=== PATIENT | female | born 1940 | race Caucasian/White ===

== ENCOUNTER 2016-11-09 21:10 | Inpatient (IN) | payer OTHER ==
--- NOTE | ~2016-11-09 | HP ---
History And Physical [address] [address] NAME: KAROL CORTES : 41 STATUS : ADM [facility]ar PAT#: [id number] AGE: 75 ADM/REG DATE : 11/09/16 MR#: [id number] REPORT SERV DATE: 11/10/16 DICTATED BY: YASIR SWEENEY DATE: 11/10/16 REPORT STATUS : Draft TRANSCRIBED BY: DEBORAH DATE: 11/10/16 DATE OF ADMISSION: 11/09/2016 CHIEF COMPLAINT: A 75-year-old female presenting with severe constipation, uncomfortable urine. HISTORY OF PRESENT ILLNESS: The patient's history was obtained through careful interview with the patient and coupled with review of [facility] medical records. The patient states that she has not had a bowel movement in about one month. She denies any abdominal pain related to this though. She has also noticed difficulty with urination over the last week or so with uncomfortable urine but she denies any burning with urination. She denies urinary frequency. She describes chronic back pain, but it is not necessarily located in the flanks. It is a midline lower back pain about a 6/10 severity of aching quality. She has had nausea and a poor appetite but no vomiting. She believes she has lost some weight recently but is unclear how much. She has been getting weak over the last 7-14 days and now states that she cannot even get up and walk on her own. She admits her diabetes is poorly controlled. Blood sugars most often over 200. Over the last month, she developed ulcers on her heels, followed by home health care. No lightheadedness. No chest pain. No shortness of breath. REVIEW OF SYSTEMS: Otherwise, a 14-point review of systems was obtained and was negative. PAST MEDICAL HISTORY: 1. Diabetes. 2. Neuropathy. 3. Gastroesophageal reflux disorder. 4. Vertigo. 5. No cardiac disease. 6. No lung disease. PAST SURGICAL HISTORY: Left shoulder surgery. ALLERGIES: CODEINE. SOCIAL HISTORY: The patient is a smoker. No alcohol abuse. She is . Lives in History And Physical [address] [address] NAME: KAROL CORTES : 41 STATUS : ADM Bandar PAT#: [id number] AGE: 75 ADM/REG DATE : 11/09/16 MR#: [id number] REPORT SERV DATE: 11/10/16 DICTATED BY: YASIR SWEENEY DATE: 11/10/16 REPORT STATUS : Draft TRANSCRIBED BY: DEBORAH DATE: 11/10/16 Rivka Hernadez, has three children. Her children live in [place], [place], and [place]. She is seen by home health care. FAMILY HISTORY: Hypertension and heart disease. CURRENT MEDICATIONS: Insulin, unknown type. PHYSICAL EXAMINATION: VITAL SIGNS: Temperature 97.7, pulse 127, blood pressure 110/69, respiratory rate 18, and O2 saturation 96% on room air. GENERAL: An ill-appearing female in evidence of distress secondary to abdominal discomfort. HEENT: Pupils equal, round, and reactive to light. No conjunctival pallor. No scleral icterus. Nares are patent. Oropharynx is clear of obstruction. Very dry mucous membranes, cracking of the lips. NECK: Trachea midline. No thyromegaly. LYMPH: No cervical lymphadenopathy. No supraclavicular lymphadenopathy. No inguinal lymphadenopathy. RESPIRATORY: Clear to auscultation at bases. No wheezes, rales, or rhonchi. Normal respiratory effort. CARDIOVASCULAR: Tachycardic. Regular rhythm. No murmurs, rubs, or gallops. No extremity edema is appreciated. ABDOMEN: Despite the patient stating that she has no abdominal pain on history of present illness, her abdomen is extremely tender to palpation particularly in the suprapubic area and lower quadrants with guarding, no rebound. Nondistended abdomen with no hepatosplenomegaly. DERMATOLOGICAL: Warm and dry extremities. No pallor. No cyanosis. PSYCHIATRIC: A flat affect and irritable mood. Alert and oriented x3 though. LABORATORY DATA: White blood cell count 11, hemoglobin 15, hematocrit 43, and platelets 339. Sodium 131, potassium 5.4, chloride 94, bicarb 23, BUN 37, creatinine 0.61, glucose 260, INR 1.0, lipase 66, troponin negative. Urinalysis shows greater than 182 white blood cells, large leukocyte esterase, greater than 92 red blood cells. STUDIES: 1. CT scan of the abdomen shows cystitis, possible dilatation of the ureters, and a very large stool ball with constipation. 2. EKG by my own evaluation shows sinus tachycardia, left axis deviation, large inferior Q- waves, and septal infarct changes but generally stable compared to 10/2015. ASSESSMENT AND PLAN: 1. Severe constipation. Try enemas. May need GI consult for evacuation (?). 2. Cystitis. Place on IV antibiotics. Check urine culture. 3. Dehydration. Place on IV fluids. 4. Diabetes, uncontrolled. Check hemoglobin A1c. Add Levemir sliding scale insulin. Obtain a environmental educator consult. 5. Heel ulcers. Obtain a Wound Care consult. History And Physical [address] [address] NAME: KAROL CORTES : 41 STATUS : ADM Bandar PAT#: [id number] AGE: 75 ADM/REG DATE : 11/09/16 MR#: [id number] REPORT SERV DATE: 11/10/16 DICTATED BY: YASIR SWEENEY DATE: 11/10/16 REPORT STATUS : Draft TRANSCRIBED BY: DEBORAH DATE: 11/10/16 KPL/DEBORAH Yasir Sweeney M.D. / [id number] CC: Moni Hernandez
--- NOTE | ~2016-11-09 | DS ---
Discharge Summary [facility] [address] [place]. [address] NAME: KAROL CORTES : 41 STATUS : DIS IN PAT#: [id number] AGE: 75 ADM/REG DATE : 11/09/16 MR#: [id number] REPORT SERV DATE: 11/16/16 DICTATED BY: SIMONA CHO DATE: 11/15/16 REPORT STATUS : Draft TRANSCRIBED BY: MODL DATE: 11/15/16 ADMISSION DATE: 11/09/2016 DISCHARGE DATE: 11/15/2016 Please see prior discharge summary done by Dr. Mary's team with Klaus Rainey. 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 HOSPITAL COURSE: As an addendum to prior discharge summary, the patient and family did not want any further aggressive measures. The patient repeatedly did not want any medications or blood draws. After brad conversation, the patient has poor meaningful recovery. Her BMI is 13. Did not happen obviously overnight. It is more than likely a result of her dementia with an unintentional self neglect due to her dementia. She has completed her antibiotics for UTI for which her mental status is not improved indicating likely baseline severe dementia. The patient, as a result, with family had decided to go home with hospice. DISCHARGE MEDICATIONS: Will be per hospice. FOLLOW UP: Per hospice. I have explained this thoroughly to the family and they are appreciative. All questions were answered. It took over 30 minutes to do. MALATHI/DEBORAH Simona Cho DO / [id number] CC: DO Pita Aguiar
--- NOTE | ~2016-11-09 | IDS ---
Interim Discharge Summary [facility] [address] [place]. [address] NAME: KAROL CORTES : 41 STATUS : [facility]M [facility]#: [id number] AGE: 75 ADM/REG DATE : 11/09/16 MR#: [id number] REPORT SERV DATE: 11/13/16 DICTATED BY: KLAUS FRANCISCO DATE: 11/13/16 REPORT STATUS : Draft TRANSCRIBED BY: MODNoemi DATE: 11/13/16 ADMISSION DATE: 11/09/2016 DISCHARGE DATE: REASON FOR ADMISSION: This is a 75-year-old female, who had presented with severe constipation and dysuria. The patient had stated that she had not had a bowel movement in about one month, but denied abdominal pain, and admitted to difficulty with urination over the last week. INTERIM DISCHARGE DIAGNOSES: 1. Failure to thrive with anorexia. 2. Severe malnutrition related to anorexia. 3. Urinary tract infection. 4. Diabetes type 2, uncontrolled. 5. Status post constipation. HOSPITAL COURSE: 1. Constipation. The patient was given enemas and laxatives and had successful bowel movements. 2. UTI. The patient's urinalysis showed turbid urine with large amount of leukocyte esterase, greater than 182 white blood cells, with many white blood cell clumps, and many bacteria. She was started on IV Rocephin and urine culture would grow out 75,000 of diphtheroid like organisms. She was given Rocephin x3 doses and then the antibiotic was discontinued after culture results. 3. Diabetes type 2. The patient has uncontrolled diabetes which is unique and impressive considering her lack of eating and lack of body mass. We attempted to place her on IV fluids with dextrose 5% in them, since she was not eating, however her blood sugars have not tolerated that. Initially, she was on Levemir 12 units with sliding scale insulin. We have since pulled her off the dextrose in the IV fluids, pulled her off insulin and placed her on Januvia. Her blood sugars today have been better with overnight before she went to bed it was 246 and this morning it was 183, but the previous day, she had blood sugars that were 300 and 400. Another issue, we have been having is that she is very cantankerous and is not allowing us to check her blood sugar at times and this goes hand in hand with her behavior of refusing to eat seemingly. 4. Failure to thrive with anorexia. The patient weighs 88 pounds and has a BMI of 13. states that he cooks for her and that she is supposedly eats at home, but it seems highly unlikely that she is eating very much at home given her frailness and could cachetic appearance. We have consulted Nutrition here at the hospital to do calorie counts. I did witness the patient eating with the feeding her today, and we have also consulted Dr. Barahona of Psychiatry to see her. It is unclear whether she has some dementia that is playing a role in this or a psychiatric disorder that is playing a role in this or if she not being fed enough at home, it is a little unclear at this point. We will have further evaluation and recommendation. However, the patient does have weakness related to her frail state and after Physical Therapy saw her, they recommended fpc facility rehab. Case Management is assisting on this. Interim Discharge Summary [address] [address] NAME: KAROL CORTES : 41 STATUS : ADM IN PAT#: [id number] AGE: 75 ADM/REG DATE : 11/09/16 MR#: [id number] REPORT SERV DATE: 11/13/16 DICTATED BY: KLAUS FRANCISCO DATE: 11/13/16 REPORT STATUS : Draft TRANSCRIBED BY: DEBORAH DATE: 11/13/16 CURRENT MEDICATIONS: 1. Alogliptin 25 mg p.o. daily. 2. Heparin 5000 units subcu b.i.d. 3. Sliding scale insulin level 1. 4. Lubiprostone 8 mcg p.o. daily. 5. Mirtazapine 7.5 mg p.o. q.h.s. 6. Megace 400 mg p.o. daily. 7. MiraLAX one packet p.o. daily. 8. Thiamine 100 mg p.o. daily. CURRENT PLAN: Psychiatric consult and Nutrition Services to help assist in evaluation of core issues and plan for the patient's malnutrition and anorexic state and Case Management assisting in fpc rehab placement. The patient's care to be assumed by Dr. Emgidio Carpenter. ALESSANDRA/DEBORAH Klaus Francisco APN / [id number] CC: Moni Hernandez KATRINA V. Wesley S. Thompson, DO Denis Kennedy, M.D.
--- NOTE | ~2016-11-09 | CN ---
Consultation Report [facility] [address] [place]. [address] NAME: KAROL CORTES : 41 STATUS : ADM IN PAT#: [id number] AGE: 75 ADM/REG DATE : 11/09/16 MR#: [id number] REPORT SERV DATE: 11/14/16 DICTATED BY: ANKUSH MCNAMARA DATE: 11/14/16 REPORT STATUS : Draft TRANSCRIBED BY: MODL DATE: 11/14/16 PSYCHIATRIC CONSULTATION DATE OF CONSULTATION: 11/14/2016 I reviewed this patient's medical record. I discussed the patient's history with her , who is at the bedside. HISTORY OF PRESENT ILLNESS: She was admitted with severe constipation, urinary symptoms, poorly controlled diabetes mellitus, and anorexia. She was severely malnourished. Her thought she might have lost about 60 pounds in weight over the past two to three years. PAST PSYCHIATRIC HISTORY: She had no preexisting psychiatric illness. Over the years, she was not subject to mood issues or depression. About two to three years ago, she lost the ability to walk freely because of advancing peripheral neuropathy. This disability seemed to trigger anorexia and a lessening of her desire to go on living. She seemed to withdrawal more and become more forgetful. FAMILY HISTORY: No psychiatric illness. SOCIAL HISTORY: She grew up in [place], [place]. She has three children with her first . She has been to her second for eight years. 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 About six years ago, they moved to the local area. MENTAL STATUS: She was minimally cooperative with this examination. At one point, she angrily protested that I was asking too many questions and I was boring her. Her mood appeared to be more anhedonic than depressed. Her affect was constricted, but appropriate. Her thinking was impoverished, but logical. She had no delusions. She had no hallucinations. She was oriented to "Normal"-"October"-"toward the end"-"2016"-"Trump." She denied wanting to kill herself by starvation. She refused to discuss the consequences of not eating sufficient nourishment. When I tried to discuss the issue of a feeding tube, she repeatedly and angrily said "no, no, no." DIAGNOSES: Depressive disorder, not otherwise specified, associated with advancing peripheral neuropathy, and disability. RECOMMENDATIONS: I agree with Remeron. I would recommend changing it to the soluble tablet form and increasing the dose to 30 mg. In my opinion, she has the capacity to refuse a feeding tube. Her and according to him her children do not want the feeding tube in view of her strong opposition to it. I will sign off. DK/MODL Consultation Report [facility] [id number] [place]. [address] NAME: KAROL CORTES : 41 STATUS : ADM IN PAT#: [id number] AGE: 75 ADM/REG DATE : 11/09/16 MR#: [id number] REPORT SERV DATE: 11/14/16 DICTATED BY: ANKUSH MCNAMARA DATE: 11/14/16 REPORT STATUS : Draft TRANSCRIBED BY: DEBORAH DATE: 11/14/16 Ankush Mcnamara M.D. / [id number] CC: DO VANCE Aguiar KATRINA V.
[2016-11-09 20:09] LABS: BASOPHILS 0.1 %; BASOPHILS ABSOLUTE 0.01 10/3/uL (0.0-0.16); EOSINOPHILS 0.1 %; EOSINOPHILS ABSOLUTE 0.01 10/3/uL (0.0-0.53); ER CBC TAT 0 Hrs 12 Mins; HEMATOCRIT 43.4 % (36.0-48.0); HEMOGLOBIN 15.1 g/dL (12.0-16.0); IMMATURE GRANULOCYTES 0.4 %; IMMATURE GRANULOCYTES ABSOLUTE 0.04 10/3/uL (0.0-0.11); LYMPHOCYTES 12.7 %; LYMPHOCYTES ABSOLUTE 1.43 10/3/uL (0.67-4.30); MANUAL DIFF NO %; MEAN CORPUS HGB CONC 34.8 g/dL (32.0-36.0); MEAN CORPUSCULAR HEMOGLOB 29.4 pg (26.0-34.0); MEAN CORPUSCULAR VOLUME 84.4 fL (80-100); MEAN PLATELET VOLUME 10.3 fL (9.2-13.0); MONOCYTES 11.1 %; MONOCYTES ABSOLUTE 1.25 10/3/uL (0.21-1.20); NEUTROPHILS 75.6 %; NEUTROPHILS ABSOLUTE 8.49 10/3/uL (2.02-8.40); PLATELET COUNT 339 10/3/uL (150-400); RBC DISTRIBUTION WIDTH 13.2 % (12.0-16.0); RED CELL COUNT 5.14 10/6/uL (4.0-5.6); WHITE BLOOD CELLS 11.2 10/3/uL (4.5-10.5)
[2016-11-09 20:13] LABS: ASCORBIC ACID (UR NOT ORDER) NEG (NEG); BILIRUBIN, URINE NEGATIVE (NEG); ER URINALYSIS TAT 0 Hrs 16 Mins; KETONE, URINE TRACE MG/DL (NEG); LEUKOCYTE ESTERASE(NOT OR LARGE (NEG); NITRITE (URINE) NEG (NEG)
[2016-11-09 20:14] LABS: WBC (NOT ORDERED) (RFLEX) > 182 (0-5)
[2016-11-09 20:16] LABS: PARTIAL THROMBO TIME 27.2 SEC (22.5-37.2); PROTIME (NOT ORD) 13.1 SEC (12.0-14.5)
[~2016-11-09 21:10] MED LIST: ALEVE220 MG PO; ELDERTONIC PO; ONGLYZA2.5 MG PO; REM15 PO; ULTRAM50 PO
[2016-11-09 22:04] LABS: BUN (BLOOD UREA NITROGEN) 37 MG/DL (6-23); CALCIUM, SERUM 9.5 MG/DL (8.5-10.4); CHEST PAIN PROFILE TAT 0 Hrs 29 Mins; CHLORIDE, SERUM 94 MMOL/L (96-112); CO2 (CARBON DIOXIDE) 28 MMOL/L (24-34); CREATININE 0.61 MG/DL (0.55-1.02); GFR AFRICAN AMERICAN 104 ML/MIN (>=60); GFR NON AFRICAN AMERICAN 89 ML/MIN (>=60); GLUCOSE, SERUM 260 MG/DL (60-99); POTASSIUM, SERUM 5.4 MMOL/L (3.5-5.3); SODIUM, SERUM 131 MMOL/L (135-148); TROPONIN I 0.02 NG/ML (<0.05)
[2016-11-09] MEDS ORDERED: LANTUS SC (22:17)
[2016-11-10] MEDS ORDERED: NOVOLOG SC (09:15)
[2016-11-11 01:25] LABS: BASOPHILS 0.3 %; BASOPHILS ABSOLUTE 0.03 10/3/uL (0.0-0.16); EOSINOPHILS 0.3 %; EOSINOPHILS ABSOLUTE 0.03 10/3/uL (0.0-0.53); HEMATOCRIT 40.8 % (36.0-48.0); HEMOGLOBIN 14.2 g/dL (12.0-16.0); IMMATURE GRANULOCYTES 0.4 %; IMMATURE GRANULOCYTES ABSOLUTE 0.04 10/3/uL (0.0-0.11); LYMPHOCYTES 10.7 %; LYMPHOCYTES ABSOLUTE 1.14 10/3/uL (0.67-4.30); MANUAL DIFF NO %; MEAN CORPUS HGB CONC 34.8 g/dL (32.0-36.0); MEAN CORPUSCULAR VOLUME 83.4 fL (80-100); MEAN PLATELET VOLUME 9.5 fL (9.2-13.0); MONOCYTES 11.5 %; MONOCYTES ABSOLUTE 1.22 10/3/uL (0.21-1.20); NEUTROPHILS 76.8 %; NEUTROPHILS ABSOLUTE 8.17 10/3/uL (2.02-8.40); PLATELET COUNT 307 10/3/uL (150-400); RED CELL COUNT 4.89 10/6/uL (4.0-5.6); WHITE BLOOD CELLS 10.6 10/3/uL (4.5-10.5)
[2016-11-11 01:33] LABS: INTERNATIONAL NORMAL RATI 0.9 UNITS (-); PARTIAL THROMBO TIME 25.2 SEC (22.5-37.2); PROTIME (NOT ORD) 12.1 SEC (12.0-14.5)
[2016-11-11 01:46] LABS: A/G RATIO 0.6 (0.7-1.9); ALBUMIN 2.3 G/DL (3.5-5.0); ALKALINE PHOSPHATASE 95 U/L (45-117); BUN (BLOOD UREA NITROGEN) 21 MG/DL (6-23); CALCIUM, SERUM 9.1 MG/DL (8.5-10.4); CHLORIDE, SERUM 97 MMOL/L (96-112); CO2 (CARBON DIOXIDE) 30 MMOL/L (24-34); CREATININE 0.34 MG/DL (0.55-1.02); GFR AFRICAN AMERICAN 125 ML/MIN (>=60); GFR NON AFRICAN AMERICAN 108 ML/MIN (>=60); GLUCOSE, SERUM 66 MG/DL (60-99); PHOSPHORUS, SERUM 1.8 MG/DL (2.5-4.5); POTASSIUM, SERUM 4.1 MMOL/L (3.5-5.3); SGPT(ALT) 9 U/L (5-65); SODIUM, SERUM 132 MMOL/L (135-148); TOTAL BILIRUBIN 0.3 MG/DL (0-1.2); TOTAL PROTEIN 6.3 G/DL (6.0-8.5)
[2016-11-11 01:47] LABS: SGOT(AST) 12 U/L (5-40)
[2016-11-15] MEDS ORDERED: AMITIZA8 MCG PO (11:56)
[2016-11-15] MEDS ORDERED: REMERON30 MG PO (11:56)
[2016-11-15] MEDS ORDERED: MEGACEUDL PO (11:57)
[2016-11-15] MEDS ORDERED: MIRALAX POWDER1 PKT PO (11:58)
== END 2016-11-15 15:55 | disposition hospice, home (50) | DRG 388 ==
LOC: ER 21:10 → 1SO 23:33
PROVIDERS: Hospitalist; Nurse Practitioner
DX: K56.41 Fecal impaction (principal); E43 Unspecified severe protein-calorie malnutrition; N39.0 Urinary tract infection, site not specified; Z68.1 Body mass index [BMI] 19.9 or less, adult; G62.9 Polyneuropathy, unspecified; E11.65 Type 2 diabetes mellitus with hyperglycemia; G31.09 Other frontotemporal neurocognitive disorder; F02.80 Dementia in other diseases classified elsewhere, unspecified severity, without behavioral disturbance, psychotic disturbance, mood disturbance, and anxiety; Z51.5 Encounter for palliative care; Z66 Do not resuscitate; L89.629 Pressure ulcer of left heel, unspecified stage; L89.619 Pressure ulcer of right heel, unspecified stage; E86.0 Dehydration; G89.29 Other chronic pain; M54.9 Dorsalgia, unspecified; K21.9 Gastro-esophageal reflux disease without esophagitis; F32.9 Major depressive disorder, single episode, unspecified; F17.210 Nicotine dependence, cigarettes, uncomplicated; R62.7 Adult failure to thrive; Z79.4 Long term (current) use of insulin; Z79.899 Other long term (current) drug therapy; Z88.5 Allergy status to narcotic agent
CPT/HCPCS: 70450; 74176; 80048; 80053; 81001; 82962; 83036; 83690; 83735; 84100; 84484; 85025; 85610; 85730; 87086; 93005; 96361; 96374; 97162-GP; 99285; A9270-GY; J3486